=== PATIENT | male | born 1940 | race Caucasian/White ===

== ENCOUNTER 2017-01-04 20:24 | Emergency (ER) | payer MEDICARE ==
[2017-01-04 20:40] LABS: BASOPHILS 0.4 % (0-2); EOSINOPHILS 2.8 % (0-7); HEMATOCRIT 45.2 % (42.0-54.0); HEMOGLOBIN 15.6 g/dL (13.5-17.5); IMMATURE GRANULOCYTES 0.2 % (0-5); MCH 32.7 pg (26.0-34.0); MCHC 34.5 g/dL (31.0-37.0); MCV 94.8 fL (80.0-100.0); MEAN PLATELET VOLUME 10.6 fL (7.4-10.4); MONOCYTES 10.5 % (2-11); NEUTROPHILS 69.1 % (40-80); PLATELET COUNT 92 10x3/uL (130-400); RBC 4.77 10x6/uL (4.20-6.10); RDW 13.3 % (11.5-14.5); WBC 5.6 10x3/uL (4.8-10.8)
[2017-01-04 21:19] LABS: ALBUMIN 4.1 g/dL (3.4-5.0); ANION GAP 12.2 mmol/L (8-16); BILIRUBIN - TOTAL 0.82 mg/dL (0.2-1.3); CALCIUM 8.9 mg/dL (8.5-10.1); CARBON DIOXIDE 29.1 mmol/L (21.0-32.0); CREATININE - SERUM 1.4 mg/dL (0.6-1.3); POTASSIUM - SERUM 4.3 mmol/L (3.5-5.1); PROTEIN - SERUM 7.3 g/dL (6.4-8.2)
[2017-01-04 21:33] LABS: PLATELET ESTIMATE DECREASED
== END 2017-01-05 01:18 | disposition home or self-care (01) ==
LOC: D.ER 20:24
PROVIDERS: Emergency Medicine
DX: S71.102A Unspecified open wound, left thigh, initial encounter (principal); W34.00XA Accidental discharge from unspecified firearms or gun, initial encounter; Y93.89 Activity, other specified; Y92.89 Other specified places as the place of occurrence of the external cause; S31.31XA Laceration without foreign body of scrotum and testes, initial encounter; S31.20XA Unspecified open wound of penis, initial encounter; S31.30XA Unspecified open wound of scrotum and testes, initial encounter; I10 Essential (primary) hypertension; I48.2 Chronic atrial fibrillation; E78.5 Hyperlipidemia, unspecified